=== PATIENT | female | born 1995 | race Caucasian/White ===

== ENCOUNTER → 2021-02-04 | Outpatient (CLI) | payer OTHER ==
[2021-02-04 18:51] LABS: BASO % 0.4 % (0.0-1.0); EOS # 0.1 10^3/uL (0.0-0.5); EOS % 1.4 % (0.0-3.0); HEMATOCRIT 41.8 % (36.0-47.0); HEMOGLOBIN 13.8 g/dl (12.0-15.5); LYMPH % 40.6 % (24.0-44.0); MEAN CORPUSCULAR HEMOGLOBIN 30.1 pg (27.0-33.0); MEAN CORPUSCULAR VOLUME 91.3 fl (80.0-96.0); MONO # 0.5 10^3/uL (0.0-0.8); MONO % 6.1 % (2.0-8.0); NEUTROPHILS # 3.8 10^3/uL (1.5-8.5); NEUTROPHILS % 50.8 % (36.0-66.0); PLATELET COUNT, AUTOMATED 376 10^3/uL (150-450); RED BLOOD COUNT 4.58 10^6/uL (4.00-5.40); WHITE BLOOD COUNT 7.4 10^3/uL (4.0-10.0)
[2021-02-04 19:32] LABS: ALBUMIN 4.2 GM/DL (3.2-5.2); ALT/SGPT 26 U/L (12-78); BILIRUBIN,TOTAL 0.3 MG/DL (0.2-1.0); BLOOD UREA NITROGEN 7 MG/DL (7-18); C REACTIVE PROTEIN QUANTITATIV 0.63 MG/DL (0.00-0.30); CARBON DIOXIDE LEVEL 26 MEQ/L (21-32); CHLORIDE LEVEL 105 MEQ/L (98-107); CREATININE FOR GFR 0.62 MG/DL (0.55-1.30); FREE T4 1.08 NG/DL (0.76-1.46); GLOMERULAR FILTRATION RATE > 60.0 (>60); GLUCOSE, FASTING 69 MG/DL (70-100); POTASSIUM SERUM 4.6 MEQ/L (3.5-5.1); RHEUMATOID FACTOR QUANT 14.1 IU/ML (<15.0); SODIUM LEVEL 137 MEQ/L (136-145)
[2021-02-04 20:13] LABS: ERYTHROCYTE SEDIMENTATION RATE 9 mm/hr (0-20)
== END ==
LOC: M LAB 17:56
PROVIDERS: ATTEND Physician Assistant
DX: M25.50 Pain in unspecified joint (principal)

== ENCOUNTER → 2021-02-23 | Outpatient (REF) | payer OTHER | LOC: M LAB REF 18:09 | PROVIDERS: ATTEND Physician Assistant | DX: R30.0 Dysuria (principal) ==

== ENCOUNTER → 2021-03-24 | Outpatient (CLI) | payer OTHER ==
--- NOTE | 2021-03-24 12:55 | REP ---
INDICATION: RECURRENT UTI. COMPARISON: None. TECHNIQUE: Real-time sonographic evaluation of the kidneys is performed. FINDINGS: Renal cortical echogenicity pattern is normal bilaterally and contours are smooth. There is no evidence of hydronephrosis, cyst, mass, or calculus in either kidney. The right kidney measures 10.1 x 5.1 x 4.0 cm. Left renal dimensions are 10.7 x 5.0 x 5.4 cm. The urinary bladder is unremarkable. Ureteral jets could not be visualized in the urinary bladder with Doppler color evaluation. IMPRESSION: Negative renal ultrasound. <Electronically signed by Jb Paris > 03/24/21 [id number]
== END ==
LOC: M RAD 12:15
PROVIDERS: ATTEND Physician Assistant
DX: N39.0 Urinary tract infection, site not specified (principal)

== ENCOUNTER → 2021-05-05 | Outpatient (CLI) | payer OTHER ==
[~2021-05-05] MED LIST: GASTROGRAFIN SOLUTION 30ML (Q9963) As Ordered ONE; ISOVUE-370 76% 100ML VIAL As Ordered ONE
--- NOTE | 2021-05-05 17:56 | REP ---
INDICATION: CHRONIC LLQ PAIN CHANGE IN BOWLE HABITS EVAL IBS. COMPARISON: Renal ultrasound 03/24/2021 TECHNIQUE: Oral Gastrografin 10 mL in 290 mL flavum water for 2 doses per our bowel contrast protocol. Bolus of 100 mL Isovue 370 scanning through the abdomen and pelvis with both coronal and sagittal reconstructions. FINDINGS: CT abdomen: Lung bases are clear. The heart is not enlarged. There is no pericardial thickening or effusion. Liver and spleen were unremarkable. Gallbladder is surgically absent. Visible portions of pancreas are unremarkable. Adrenal glands are normal. Visible portions of kidneys without hydronephrosis, mass or stone disease. The visible colon in the abdomen with stool and gas but no colitis or diverticulitis. Small bowel loops are contrast filled in the abdomen and pelvis without dilatation or inflammatory change adjacent. No hydroureter or ureteral stone. Bladder only partially filled without stone or mass. There is no ascites, perforation or free air. Bone windows show normal alignment of the spine with Covarrubias rods extending to the L3 level with pedicle screws bilaterally. Visualized ribs intact. CT pelvis: Sacrum, SI joints, pelvis and hips were all unremarkable uterus anteverted not enlarged and there is no adnexal mass or pelvic free fluid bladder without stone and no distal ureteral dilatation or stone. A few pelvic phleboliths are seen. The distal left colon and sigmoid have stool and gas but no inflammatory change. Cecum shows no pericolonic adenopathy or inflammatory change. By history she is status post appendectomy. No ventral or inguinal hernia nor pathologic sized inguinal adenopathy. IMPRESSION: 1. Small bowel loops the well opacified without inflammatory change, wall thickening a stricture or mass. No inflammatory change in the mesentery adjacent. 2. Abdominal and pelvic portions of the colon without any acute finding or inflammatory change. No colitis or diverticulitis. Appendix surgically absent. 3. No ascites, adenopathy, solid organ mass or abnormality. Patient is status post cholecystectomy. Stomach unremarkable with no hiatal hernia. There air in 10 rods from the upper end of the field of view to the L3 level. <Electronically signed by Carroll Pelaez > 05/05/21 [id number]
== END ==
LOC: M RAD 13:54
PROVIDERS: ATTEND Physician Assistant
DX: R10.32 Left lower quadrant pain (principal); R19.4 Change in bowel habit
CPT/HCPCS: 74177; Q9963; Q9967

== ENCOUNTER → 2021-05-22 | Outpatient (CLI) | payer OTHER ==
--- NOTE | 2021-05-22 16:59 | REPVR ---
PROCEDURE INFORMATION: Exam: MR Head Without and With Contrast Exam date and time: 05/22/2021 4:04 PM Age: 26 years old Clinical indication: Pain; Headache not specified; Additional info: Worsening santoyo's w/ syncope episodes TECHNIQUE: Imaging protocol: MR of the head without and with intravenous contrast. Contrast material: PROHANCE; Contrast volume: 10 ml; Contrast route: INTRAVENOUS (IV); COMPARISON: No relevant prior studies available. FINDINGS: Brain: No acute infarct identified on the diffusion-weighted imaging. No parenchymal hemorrhage. No evidence of brain parenchymal edema or intracranial mass effect. No significant white matter disease. No pathologic intracranial enhancement. Cerebral ventricles: Normal. No ventriculomegaly. Bones/joints: Unremarkable. Paranasal sinuses: Normal as visualized. No acute sinusitis. Mastoid air cells: Small, dependent left mastoid effusion. Orbital cavity: Unremarkable. Soft tissues: Unremarkable. IMPRESSION: Unremarkable MRI brain without and with contrast. Electronically signed by: Stacia Haile On 05/22/2021 16:59:35 PM
== END ==
LOC: M RAD 14:49
PROVIDERS: ATTEND Physician Assistant
DX: R51.9 Headache, unspecified (principal); R55 Syncope and collapse

== ENCOUNTER → 2021-12-18 | Outpatient (CLI) | payer OTHER | LOC: M LAB 15:35 | PROVIDERS: ATTEND Nurse Practitioner Adult Health | DX: Z98.1 Arthrodesis status (principal) ==

== ENCOUNTER → 2022-07-28 | Outpatient (CLI) | payer OTHER | LOC: M PLALAB 10:39 | PROVIDERS: ATTEND Nurse Practitioner Adult Health | DX: N93.9 Abnormal uterine and vaginal bleeding, unspecified (principal) ==

== ENCOUNTER → 2022-07-30 | Outpatient (CLI) | payer OTHER | LOC: M PLALAB 11:23 | PROVIDERS: ATTEND Nurse Practitioner Adult Health | DX: N93.9 Abnormal uterine and vaginal bleeding, unspecified (principal) ==

== ENCOUNTER → 2022-09-03 | Outpatient (REF) | payer OTHER | LOC: M LAB REF 15:01 | PROVIDERS: ATTEND Nurse Practitioner Adult Health | DX: N89.8 Other specified noninflammatory disorders of vagina (principal) ==

== ENCOUNTER → 2022-10-06 | Outpatient (REF) | payer OTHER | LOC: M PLALAB 13:12 | PROVIDERS: ATTEND Advanced Practice Midwife | DX: Z12.4 Encounter for screening for malignant neoplasm of cervix (principal) ==